=== PATIENT | male | born 1960 | race Caucasian/White ===

== ENCOUNTER 2017-04-02 02:18 | Emergency (ER) | payer MEDICAID ==
--- NOTE | 2017-04-02 03:08 | EDPHY ---
H & P Stated Complaint: ETOH, FOUND DOWN ON SIDEWALK OUTSIDE HALF FAST SUBS HPI/ROS: HPI CHIEF COMPLAINT: Alcohol intoxication, found down on the sidewalk HISTORY OF PRESENT ILLNESS: This patient 49-year-old male, Connor Helm, presents emergency room is found down on the sidewalk in front of a [employer]. Highly intoxicated with alcohol. He presents emergency room intoxicated. Will not follow commands or give us any information. He is unknown medical history unknown surgical history. There is no visible trauma on exam. However he is very sleepy. Smells of alcohol. His breath alcohol upon arrival 226. Past Medical History: Unknown Past Surgical History: Unknown Social History: Homeless, daily alcohol use Family History: Unknown ROS REVIEW OF SYSTEMS: Limited due to patient's mental state. Exam Constitutional Intoxicated, triage nursing summary reviewed, vital signs reviewed, Sleepy, smells of alcohol Eyes normal conjunctivae and sclera, horizontal beating nystagmus consistent acute alcohol intoxication, otherwise pupils equal and react to light HENT normal inspection, atraumatic, moist mucus membranes, no epistaxis, neck supple/ no meningismus, no raccoon eyes. Respiratory clear to auscultation bilaterally, normal breath sounds, no respiratory distress, no wheezing. Cardiovascular rate normal, regular rhythm, no murmur, no edema, distal pulses normal. Gastrointestinal soft, non-tender, no rebound, no guarding, normal bowel sounds, no distension, no pulsatile mass. Genitourinary no CVA tenderness. Musculoskeletal no midline vertebral tenderness, full range of motion, no calf swelling, no tenderness of extremities, no meningismus, good pulses, neurovascularly intact. Skin pink, warm, & dry, no rash, skin atraumatic. Neurologic sleepy, intoxicated with alcohol,, alert and oriented x 3, AAOx3, moves all 4 extremities equally, motor intact, sensory intact, CN II-XII intact , , normal vision, normal speech. Psychiatric normal mood/affect. Heme/Lymph/Immune no lymphadenopathy. Differential Diagnosis: Includes but is not limited to in a particular order acute alcohol intoxication, alcohol abuse, dehydration, electrolyte abnormality , nausea vomiting from acute alcohol intoxication Medical Decision Making: Plan for this patient breath alcohol, CT head without contrast rule out intracranial bleed. Re-evaluation: Breath alcohol 226. Time of this 3:[address] scan of the head without IV contrast. The results of the study are negative for acute traumatic injury. The study was read by Dr. Curran. I viewed the images myself on the PACS system. [id number]: Patient re-evaluated resting comfortably no complaints. Ambulatory stable gait. Safe for discharge. Source: Patient, EMS - Personal History Current Tetanus/Diphtheria Vaccine: Unsure Current Tetanus Diphtheria and Acellular Pertussis (TDAP): Unsure - Medical/Surgical History Other PMH: ETOH ABUSE Constitutional: Initial Vital Signs Temperature (C) 36.0 C 04/02/17 02:20 Heart Rate 79 04/02/17 02:20 Respiratory Rate 18 04/02/17 02:20 Blood Pressure 104/68 04/02/17 02:20 O2 Sat (%) 95 04/02/17 02:20 O2 Delivery Mode Room Air O2 (L/minute) 2 Allergies/Adverse Reactions: Unable to Assess Allergy (Unverified 04/02/17 02:46) Home Medications: Medication Instructions Recorded Unobtainable 04/02/17 Departure - Departure Disposition: Home, Routine, Self-Care Clinical Impression: Alcoholic intoxication Qualifiers: Complication of substance-induced condition: uncomplicated Qualified Code(s): F10.920 - Alcohol use, unspecified with intoxication, uncomplicated Condition: Good Instructions: Alcohol Intoxication (ED), Abuse of Alcohol (ED) Referrals: Patient,NotPresent [Primary Care Provider] - As per Instructions
[2017-04-02 05:26] VITALS: O2SAT 97
[2017-04-02 09:17] VITALS: BP 100/60; PULSE 70; RESP 13; TEMP 97.5
== END 2017-04-02 07:45 | disposition home or self-care (01) ==
LOC: EDBD 02:18
DX: F10.920 Alcohol use, unspecified with intoxication, uncomplicated (principal)